=== PATIENT | male | born 1935 | race Caucasian/White ===

== ENCOUNTER 2022-08-04 09:45 | Emergency (ER) | payer MEDICARE, SELFPAY ==
[2022-08-04 09:56] VITALS: BP 97/79; PULSE 83; RESP 20; TEMP 36.1; O2SAT 96; BMI 26.4
--- NOTE | 2022-08-04 12:16 | ED.SKABFB ---
HPI - Skin/Abscess/Foreign Bdy General Chief complaint: Skin/Abscess/Foreign Body Stated complaint: Wound check Time Seen by Provider: 08/04/22 10:55 Source: patient Mode of arrival: ambulatory History of Present Illness HPI narrative: 86-year-old male with a past medical history of AFib on a Eliquis, diabetes, presenting to the ED complaining of bleeding skin tear to left arm s/p slipped in shower last week and hitting arm on faucet. Denies falling all the way to ground, head trauma, or LOC. Reports wound will not stop bleeding when changing dressing, has been applying Neosporin at home. Denies injury to the area, numbness/tingling, lightheadedness/dizziness MD complaint: other Onset (ago): week(s) Review of Systems Review of Systems: Constitutional: No Fever, No Chills ENT/Mouth: No Ear Pain, No Nasal Congestion, No Sinus Pain, No Hoarseness, No sore throat, No Rhinorrhea, No Swallowing Difficulty Cardiovascular: No Chest Pain, No SOB Respiratory: No Cough, No Sputum, No Wheezing Gastrointestinal: No Nausea, No Vomiting, No Diarrhea, No Constipation, No Abdominal pain Genitourinary: No Dysuria, No Urinary Frequency, No Hematuria, No Urgency, No Flank Pain Musculoskeletal: No joint pain, No Myalgias, No Joint Swelling Skin: + Skin Lesions, No rash Neuro: No Weakness, No Numbness, No Paresthesias, No head trauma, No LOC Yes all other systems are reviewed and are negative Constitutional: Constitutional: Reports as per [facility] Past Medical History Attestation statement: The following information was validated with the patient. Social History Social History Advance Directives: No Advance Directives Information Provided: No Physical Exam Vital Signs: Vital Signs: Last Vital Signs Temp 97.0 F 08/04/22 09:56 Pulse 83 08/04/22 09:56 Resp 20 08/04/22 09:56 BP 97/79 08/04/22 09:56 Pulse Ox 96 08/04/22 09:56 O2 Del Method 08/04/22 09:56 BMI result Body Mass Index 26.4 Const: General: cooperative, healthy appearing and no acute distress Orientation/consciousness: patient oriented x3 Limitations: no limitations HEENT: Head: Yes normal to inspection and Yes atraumatic Ears: hearing grossly normal bilaterally General nose exam: Normal external nose present Face and sinus: Yes normal facial exam Eyes: General: appearance normal, both eyes and all related structures EOM: EOMs intact bilaterally Neck: Neck: Yes normal visual inspection and Yes no meningeal signs Resp: Effort & Inspection: normal respiratory effort and no respiratory distress Cardio: Rate: regular rate Heart sounds: S1 normal heart sound present and S2 normal heart sound present Skin: Other: + superficial skin tear noted to left forearm, dressing removed with mild bleeding. No surrounding erythema, no fluctuance/induration, not circumferential. Neurovascular intact distally Rashes: no rashes Neuro: General: patient oriented x3, tone normal and no meningeal signs Gait exam (Neuro): Normal gait present Extrem: General: Yes normal to inspection Medical Decision Making Medical Decision Making MDM Narrative: 86-year-old male with a past medical history of AFib on a Eliquis, diabetes, presenting to the ED complaining of bleeding skin tear to left arm s/p slipped in shower last week and hitting arm on faucet. On exam vital signs stable, NAD, nontoxic appearing, physical exam as above, skin tear with mild bleeding after dressing removal, controlled with Surgicel and Travis wrap. Low suspicion for fracture, no evidence of infection Results discussed with patient including worrisome signs and symptoms and strict return precautions, and when to return to the emergency department. They verbalized understanding and feel safe for discharge at this time. Differential Diagnosis Differential Diagnoses: The differential diagnosis associated with the presentation includes As above Discharge Plan Discharge Clinical Impression: Skin tear of left upper extremity Patient Disposition: Home, Self-Care Instructions: Skin Tear (ED) Additional Instructions: Keep dressing on, dry and clean. Remove in 2-3 days with saline. If bleeding persists/continues reapply Surgicel and Traivs wrap for compression Apply topical bacitracin and Neosporin Keep wound open to air as much as possible which help with healing. If area begins look infected, is red, or bleeding does not stop return to the ED Referrals: Giuseppe Gomez MD [Primary Care Provider] - 3 days
== END 2022-08-04 12:26 | disposition home or self-care (01) ==
PROVIDERS: Emergency Provider Emergency Medicine; PCP Internal Medicine
DX: S51.812A Laceration without foreign body of left forearm, initial encounter (principal); W18.2XXA Fall in (into) shower or empty bathtub, initial encounter; Y93.E1 Activity, personal bathing and showering; Y92.012 Bathroom of single-family (private) house as the place of occurrence of the external cause; Y99.9 Unspecified external cause status; I48.91 Unspecified atrial fibrillation; Z79.01 Long term (current) use of anticoagulants
CPT/HCPCS: 99283

== ENCOUNTER 2023-06-21 16:06 | Emergency (ER) | payer MEDICARE, SELFPAY ==
--- NOTE | ~2023-06-21 | XR_ITS ---
EXAMINATION: XR FOOT, RIGHT CLINICAL INFORMATION: Injury, pain COMPARISON: None available. TECHNIQUE: AP, lateral, and oblique views of the right foot. FINDINGS: Negative for acute fracture or dislocation. Vascular calcifications are noted. Degenerative changes. XR/XR foot RT min 3V IMPRESSION: No acute fracture or dislocation.
--- NOTE | 2023-06-21 16:14 | ED_ITS ---
HPI - General Adult General Chief complaint: Extremity Injury, Lower Stated complaint: RT small toe lac Time Seen by Provider: 06/21/23 16:48 Source: patient Mode of arrival: wheelchair Limitations: no limitations History of Present Illness HPI narrative: patient is an 87-year-old male who presents emergency department for evaluation of right foot 4th toe injury. He is unaware of what happened, believes th at he may have stubbed the toe on his metal computer desk. He has chronic diabetic ulcers to the left leg for which visiting nurse comes in to perform dressing changes. Visiting nurse today noticed a laceration to the distal tip of the toe with bruising and concern for the nail being lifted. They recommended he come to the emergency department for evaluation. Patient has chronic neuropathy, he did not feel any pain. states that she did not notice it earlier this morning. Related Data Previous Rx's Medication Instructions Recorded cephalexin 500 mg capsule 500 mg PO BID #28 caps 06/21/23 doxycycline hyclate 100 mg capsule 100 mg PO BID #14 caps 06/21/23 Allergies Allergy/AdvReac Type Severity Reaction Status Date / Time No Known Allergies Allergy Verified 06/21/23 16:15 Review of Systems Review of Systems: Yes all other systems are reviewed and are negative PMFSH Past Medical History Attestation statement: The following information was validated with the patient. Source: old records reviewed Physical Exam ED Vital Signs: Vital Signs - 24 hr 06/21/23 16:15 Temperature 98.0 F Pulse Rate 97 Respiratory Rate 18 Blood Pressure 88/47 L Pulse Oximetry 96 Oxygen Delivery Method Room Air BMI result Body Mass Index 27.6 Appearance: Alert.?Oriented to person, place and time. No acute distress.?Normal affect. Eyes: Pupils equal, round and reactive to light.? ENT: Pharynx normal.?? Neck: Normal inspection.? Neck supple.?? CVS: Heart sounds normal. Normal heart rate and rhythm.? Pulses normal.?? Respiratory: No respiratory distress.? Lung sounds clear to auscultation bilaterally?? Abdomen: Soft and non-tender. Normoactive bowel sounds. Skin: Skin warm and dry.? Normal skin color.? ? Extremities: Right lower extremity 4th digit with 1 cm superficial laceration no active bleeding, underlying small hematoma, partial nail avulsion Neuro: Moves all extremities spontaneously. Sensation intact bilaterally. Course Course Course Narrative: RME performed by Loraine aBiley PA-C. Patient is an 87 year old assigned male at presenting to the emergency department with right 4th toe injury. Imaging ordered. Patient placed back in the waiting room pending room availability and results. Medical Decision Making Medical Decision Making [facility] Narrative: patient is an 87-year-old male who presents emergency department for evaluation of injury to the right 4th toe as described in HPI. Physical examination consistent with a superficial laceration an underlying hematoma not amenable to repair with suture. There is a partial avulsion of the nail that is presents, this was traumatic in nature, attempted to trim the nail to be short and, the nail is very thickened, and was resulting in bleeding. Cleansed with saline and Betadine. Covered with a nonadhesive bandage and wrapped to prevent further catching of the nail and worsening of the avulsion. Given his history of diabetes, neuropathy, chronic slow healing ulcers I discussed with patient and the importance to maintain as much of the remaining adherent nail plate as possible to prevent further damage To the nail bed. He is unaware the date of his last tetanus vaccination this was updated today, prophylactic antibiotic management with cephalexin and doxycycline which were sent to patient's pharmacy. offered to receive 1st dose in the emergency department however declined stating she would rather pick the medication up from the pharmacy. Reviewed worrisome signs and symptoms that would warrant re-evaluation in the emergency department. Advised outpatient follow-up with PCP/ wound care/ Podiatry. All questions answered. Stable for discharge. Differential Diagnosis Differential Diagnoses: The differential diagnosis associated with the presentation includes ( as noted above) Independent Interpretation I performed an independent interpretation of an: Plain X-Ray ( I personally interpreted x-ray and agree with radiologist impression.) Radiology Impression Discussion of test interpretation with radiology: I have reviewed the radiologist's reading. Radiologist Impression: XR/XR foot RT min 3V IMPRESSION: No acute fracture or dislocation. Independent Historian Clinical information obtained from an independent historian. History obtained from or confirmed by: Spouse ( Present at bedside who confirms history) External Record Review External record reviewed: Outpatient record Prescription Management I considered prescription management with: Antibiotic Discharge Plan Discharge Clinical Impression: Nail avulsion of toe Qualifiers: Encounter type: initial encounter Qualified Code(s): S91.209A - Unspecified open wound of unspecified toe(s) with damage to nail, initial encounter Patient Disposition: Home, Self-Care Instructions: Wound Infection (ED), Nail Avulsion (ED) Prescriptions: New doxycycline hyclate 100 mg capsule 100 mg PO BID Qty: 14 0RF cephalexin 500 mg capsule 500 mg PO BID Qty: 28 0RF
[2023-06-21 16:15] VITALS: BP 88/47; PULSE 97; RESP 18; TEMP 36.7; O2SAT 96; BMI 27.6
[2023-06-21] MEDS: Diphth,Pertus(ACell),Tet Adult 0.5 ML SYRINGE IM (17:22)
[2023-06-21 18:02] VITALS: BP 116/57; PULSE 94; RESP 16; O2SAT 96
== END 2023-06-21 18:05 | disposition home or self-care (01) ==
PROVIDERS: Emergency Provider Student in an Organized Health Care Education/Training Program; PCP Internal Medicine
DX: S91.204A Unspecified open wound of right lesser toe(s) with damage to nail, initial encounter (principal); W22.8XXA Striking against or struck by other objects, initial encounter; E11.40 Type 2 diabetes mellitus with diabetic neuropathy, unspecified; Y93.9 Activity, unspecified; Y92.9 Unspecified place or not applicable; Y99.9 Unspecified external cause status
CPT/HCPCS: 73630; 90471; 90715; 99284

== ENCOUNTER 2023-06-24 13:45 | Outpatient (RCR) | payer MEDICARE, SELFPAY | END 2023-11-30 02:00 | disposition home or self-care (01) | LOC: HO.WCC 13:45 | PROVIDERS: PCP Internal Medicine; Visit Provider Surgery | DX: E11.621 Type 2 diabetes mellitus with foot ulcer (principal); L97.512 Non-pressure chronic ulcer of other part of right foot with fat layer exposed; L89.623 Pressure ulcer of left heel, stage 3; L89.613 Pressure ulcer of right heel, stage 3; E11.622 Type 2 diabetes mellitus with other skin ulcer; L97.812 Non-pressure chronic ulcer of other part of right lower leg with fat layer exposed; E11.40 Type 2 diabetes mellitus with diabetic neuropathy, unspecified; I10 Essential (primary) hypertension; I87.2 Venous insufficiency (chronic) (peripheral); I25.2 Old myocardial infarction; Z79.84 Long term (current) use of oral hypoglycemic drugs; Z79.01 Long term (current) use of anticoagulants; Z79.899 Other long term (current) drug therapy | CPT/HCPCS: 11042; 11045; 97597; 99212; 99214 ==